=== PATIENT | female | born 1955 | race Hispanic/Latino ===

== ENCOUNTER 2020-10-29 12:10 | Observation (INO) | payer BC, OTHER ==
--- NOTE | 2020-10-29 13:15 | RAD REPORT ---
EXAM DESCRIPTION: CT - Head Brain Wo Cont - 10/29/2020 12:54 pm CLINICAL HISTORY: Alteration of awareness/confusion COMPARISON: None TECHNIQUE: Computed axial tomography of the head was obtained. IV contrast was not requested. All CT scans are performed using dose optimization technique as appropriate and may include automated exposure control or mA/KV adjustment according to patient size. FINDINGS: An intracranial bleed is not seen . The ventricles are normal in caliber. No extra-axial fluid collection is noted. Fluid within the sinuses/ mastoids is not seen. IMPRESSION: No acute intracranial abnormality is seen. If patient's symptoms persist MRI of the bra in would be recommended.
--- NOTE | 2020-10-29 13:16 | RAD REPORT ---
EXAM DESCRIPTION: Padmini Single View10/29/2020 1:02 pm CLINICAL HISTORY: Unresponsive COMPARISON: none FINDINGS: The lungs appear clear of acute infiltrate. The heart is mildly to moderately enlarged IMPRESSION: No acute abnormalities displayed
[2020-10-29 13:53] LABS: Absolute Lymphocytes (CBC) 2.1 K/uL (0.7-4.9); Basophils % 0.3 % (0-1.3); Hematocrit 39.4 % (36.0-45.0); Lymphocytes % 29.4 % (15.3-44.8); RBC Red Blood Cell Count 4.33 M/uL (3.86-4.86)
[2020-10-29 13:54] LABS: Protime INR 0.97
[2020-10-29 14:06] LABS: ALT/SGPT 47 U/L (12-78); AST/SGOT 28 U/L (15-37); Albumin 3.6 g/dL (3.4-5.0); Alkaline Phosphatase 155 U/L (45-117); BUN Blood Urea Nitrogen 14 mg/dL (7-18); Bicarbonate 27 mmol/L (21-32); Bilirubin Direct 0.1 mg/dL (0-0.2); Bilirubin Total 0.4 mg/dL (0.2-1.0); Glucose Level 119 mg/dL (74-106); Magnesium 2.4 mg/dL (1.8-2.4); NT PRO-BNP 323 pg/mL (<125); Potassium 4.1 mmol/L (3.5-5.1); Protein, Total 7.3 g/dL (6.4-8.2); Sodium Level 143 mmol/L (136-145); Troponin (Emerg Dept Use Only) < 0.02 ng/mL (0.0-0.045)
--- NOTE | 2020-10-29 14:15 | EDPHYS ---
Physician Documentation [facility] Name: Triston Adrian Age: 65 yrs Sex: Female : 1955 Arrival Date: 10/29/2020 Time: 12:23 Bed 3 Private MD: ED Physician Danilo Flores HPI: 10/30 07:50 This 65 yrs old Female presents to ER via EMS with complaints of Unresponsive. kdr 07:50 The patient presents with decreased mental status, decreased responsiveness. Onset: The kdr symptoms/episode began/occurred suddenly, just prior to arrival. Possible causes: CVA or TIA, Over sedation for a procedure. Associated signs and symptoms: Pertinent positives: weakness. Current symptoms: In the emergency department the patient's symptoms are unchanged from the initial presentation. Patient's baseline: Neuro: alert and fully oriented, Motor: no deficits, Ambulation: walks without assistance, Speech: normal for age. The patient has experienced a previous episode, Daughter states that this occurred under similar circumstances previously but she recalls that she was even more unresponsive on the prior experience.. The patient has been recently seen by a physician: the patient's primary care provider, Dr. Griffiths. Historical: - Allergies: 10/29 12:23 Dilaudid (Cardiac Arrest); aa5 - Home Meds: 12:23 losartan oral [Active]; atorvastatin oral [Active]; gabapentin oral [Active]; Tramadol aa5 Oral [Active]; Tylenol #3 Oral [Active]; - PMHx: 12:23 Diabetes mellitus; Hypertensive disorder; Hypercholesterolemia; RA; Osteoporosis; aa5 Fibromyalgia; - PSHx: 12:23 Nose; aa5 14:22 Neck (with metal); aa5 - Immunization history:: Adult Immunizations unknown. - Social history:: Smoking status: unknown. ROS: 10/30 07:50 Constitutional: Unable to assess Eyes: Negative for injury, pain, redness, and kdr discharge. Unable to obtain ROS due to obtunded state. Exam: 10/29 19:08 ECG was reviewed by the Attending Physician. kdr 10/30 07:50 Constitutional: This is a well developed, well nourished patient who is awake, alert, kdr and in no acute distress. Head/Face: Normocephalic, atraumatic. Eyes: Pupils equal round and reactive to light, extra-ocular motions intact. Lids and lashes normal. Conjunctiva and sclera are non-icteric and not injected. Cornea within normal limits. Periorbital areas with no swelling, redness, or edema. Neck: Trachea midline, no thyromegaly or masses palpated, and no cervical lymphadenopathy. Supple, full range of motion without nuchal rigidity, or vertebral point tenderness. No Meningismus. Chest/axilla: Normal chest wall appearance and motion. Nontender with no deformity. No lesions are appreciated. Cardiovascular: Regular rate and rhythm with a normal S1 and S2. No gallops, murmurs, or rubs. Normal PMI, no JVD. No pulse deficits. Respiratory: Lungs have equal breath sounds bilaterally, clear to auscultation and percussion. No rales, rhonchi or wheezes noted. No increased work of breathing, no retractions or nasal flaring. Abdomen/GI: Soft, non-tender, with normal bowel sounds. No distension or tympany. No guarding or rebound. No evidence of tenderness throughout. Back: No spinal tenderness. No costovertebral tenderness. Full range of motion. Skin: Warm, dry with normal turgor. Normal color with no rashes, no lesions, and no evidence of cellulitis. MS/ Extremity: Pulses equal, no cyanosis. Neurovascular intact. Full, normal range of motion. Neuro: Orientation: unable to test, the patient is comatose, Mentation: unable to follow commands. Vital Signs: 10/29 12:23 BP 161 / 75; Pulse 64; Resp 20 S; Temp 97.5(A); Pulse Ox 97% on R/A; aa5 13:43 BP 169 / 75; Pulse 65; Resp 18; Pulse Ox 99% on 2 lpm NC; vg1 14:05 BP 176 / 73; Pulse 75; Resp 18 S; Pulse Ox 100% on 2 lpm NC; aa5 16:00 BP 144 / 80; Pulse 75; Resp 16 S; Pulse Ox 98% on 2 lpm NC; aa5 18:30 BP 129 / 75; Pulse 70; Resp 16 S; Temp 97.8(TE); Pulse Ox 97% on R/A; aa5 MDM: 14:14 Patient medically screened. kdr 10/30 07:50 Data reviewed: vital signs, nurses notes, lab test result(s), radiologic studies, CT kdr scan. Counseling: I had a detailed discussion with the patient and/or guardian regarding: the historical points, exam findings, and any diagnostic results supporting the discharge/admit diagnosis, lab results, radiology results, the need for further work-up and treatment in the hospital. 10/29 12:35 Order name: Basic Metabolic Panel; Complete Time: 07:49 kdr 10/29 12:35 Order name: CBC with Diff; Complete Time: 14:02 kdr 10/29 12:35 Order name: LFT's; Complete Time: 07:49 kdr 10/29 12:35 Order name: Magnesium; Complete Time: 07:49 kdr 10/29 12:35 Order name: NT PRO-BNP; Complete Time: 07:49 kdr 10/29 12:35 Order name: PT-INR; Complete Time: 14:02 kdr 10/29 12:35 Order name: Troponin (emerg Dept Use Only); Complete Time: 07:49 [facility] 10/29 12:37 Order name: Glucose, Ancillary Testing; Complete Time: 14:02 EDMS 10/29 14:41 Order name: Basic Metabolic Panel EDMS 10/29 14:41 Order name: Basic Metabolic Panel; Complete Time: 07:49 EDMS 10/29 14:41 Order name: CBC with Automated Diff EDMS 10/29 14:41 Order name: CBC with Automated Diff; Complete Time: 07:49 EDMS 10/29 12:35 Order name: XRAY Chest (1 view); Complete Time: 14:02 [facility] 10/29 12:35 Order name: EKG; Complete Time: 12:36 kdr 10/29 12:35 Order name: Cardiac monitoring; Complete Time: 13:58 kdr 10/29 12:35 Order name: EKG - Nurse/Tech; Complete Time: 13:58 kdr 10/29 12:35 Order name: IV Saline Lock; Complete Time: 13:43 kdr 10/29 12:35 Order name: Labs collected and sent; Complete Time: 13:43 [facility] 10/29 12:35 Order name: O2 Per Protocol; Complete Time: 13:43 kdr 10/29 12:35 Order name: O2 Sat Monitoring; Complete Time: 13:43 kdr 10/29 12:36 Order name: CT Head Brain wo Cont; Complete Time: 14:02 kdr 10/29 14:41 Order name: NPO EDMS 10/29 14:41 Order name: Urinalysis; Complete Time: 07:49 EDMS 10/29 15:46 Order name: SARS-COV-2 RT PCR; Complete Time: 07:49 EDMS 10/29 16:15 Order name: Diet Ada 1800 Buddy; Complete Time: 16:15 aa5 10/29 18:23 Order name: Urine Dipstick-Ancillary; Complete Time: 07:49 EDMS 10/29 14:46 Order name: Swallow Screen; Complete Time: 14:46 aa5 EC/14 19:08 Rate is 63 beats/min. Rhythm is regular, Sinus Rhythm with No ectopy. QRS [place] is kdr Normal. SD interval is normal. QRS interval is normal. Clinical impression: NSR w/ Non-specific ST/T Changes. Administered Medications: 14:46 Drug: Tylenol 650 mg Route: PO; aa5 15:33 Follow up: Response: No adverse reaction; Marked relief of symptoms; Pain is decreased aa5 Disposition Summary: 10/29/20 14:14 Hospitalization Ordered Hospitalization Status: Observation kdr Provider: Robby Joy Location: Telemetry/MedSurg (observation) kdr Condition: Fair kdr Problem: new kdr Symptoms: have improved kdr Bed/Room Type: Standard [facility] Room Assignment: 203(10/29/20 17:39) dw Diagnosis - Altered mental status, unspecified kdr - Syncope Near kdr Forms: - Medication Reconciliation Form kdr - SBAR form kdr Signatures: Dispatcher [employer] EDCeline Arnett RN RN dw Danilo Flores MD MD kdr Nazia Caballero RN RN aa5 Corrections: (The following items were deleted from the chart) 14:18 13:59 CORONAVIRUS+MR.LAB.BRZ ordered. EDMS EDMS 14:22 12:23 PSHx: Neck; aa5 aa5 14:49 14:41 Protime (+INR) ordered. EDMS EDMS 15:44 14:03 Brain Wo Cont+MRI.RAD.BRZ ordered. EDMS EDMS 17:39 14:14 kdr dw
--- NOTE | 2020-10-29 14:15 | ER ---
Nurse's Notes [facility] Name: Triston Adrian Age: 65 yrs Sex: Female : 1955 Arrival Date: 10/29/2020 Time: 12:23 Bed 3 Private MD: Diagnosis: Altered mental status, unspecified;Syncope Near Presentation: 10/29 12:23 Chief complaint: EMS states: Pt was at the pain management clinic (Dr. Griffiths) for a aa5 lower back injection for pain management, pt was given propofol 100mg and Fentanyl 25mcg and per the clinic staff pt became unresponsive after Fentanyl administration. Pt was given Narcan by clinic prior to EMS arrival. EMS states upon their arrival pt was unresponsive, breathing at 20 to 22 breaths/minute, and O2 sat 100% RA. Pt currently responsive only to painful stimuli. 12:23 Coronavirus screen: At this time, the client does not indicate any symptoms associated aa5 with coronavirus-19. Ebola Screen: Patient negative for fever greater than or equal to 101.5 degrees Fahrenheit, and additional compatible Ebola Virus Disease symptoms. Initial Sepsis Screen: Does the patient meet any 2 criteria? No. Patient's initial sepsis screen is negative. Does the patient have a suspected source of infection? No. Patient's initial sepsis screen is negative. Risk Assessment: Do you want to hurt yourself or someone else? Unable to obtain. Onset of symptoms was October 29, 2020. 12:23 Acuity: ABBI 2 aa5 12:23 Method Of Arrival: EMS: [facility] aa5 Historical: - Allergies: 12:23 Dilaudid (Cardiac Arrest); aa5 - Home Meds: 12:23 losartan oral [Active]; atorvastatin oral [Active]; gabapentin oral [Active]; Tramadol aa5 Oral [Active]; Tylenol #3 Oral [Active]; - PMHx: 12:23 Diabetes mellitus; Hypertensive disorder; Hypercholesterolemia; RA; Osteoporosis; aa5 Fibromyalgia; - PSHx: 12:23 Nose; aa5 14:22 Neck (with metal); aa5 - Immunization history:: Adult Immunizations unknown. - Social history:: Smoking status: unknown. Screenin:45 Abuse screen: No signs noted. Nutritional screening: No deficits noted. Tuberculosis aa5 screening: No symptoms or risk factors identified. Fall Risk IV access (20 points). Mental Status- Overestimates/Forgets Limitations (15 pts.). Total Hernandes Fall Scale indicates High Risk Score (45 or more points). Fall prevention measures have been instituted. Side Rails Up X 2 Placed Close to Nursing Station. Assessment: 12:25 General: Appears comfortable, Behavior is unresponsive. Pain: Unable to use pain scale. aa5 Does not appear to understand pain scale. Neuro: Level of Consciousness is unresponsive, Pt opens eyes to painful stimuli. Pupils are 4mm in size, round and reactive to light. . Cardiovascular: Heart tones S1 S2 present Rhythm is regular. Respiratory: Airway is patent Respiratory effort is even, unlabored, Respiratory pattern is regular, symmetrical, Breath sounds are clear bilaterally. GI: Abdomen is round non-distended, Bowel sounds present X 4 quads. Abd is soft and non tender X 4 quads. : No signs and/or symptoms were reported regarding the genitourinary system. EENT: No signs and/or symptoms were reported regarding the EENT system. Derm: Skin is pink, warm \\T\\ dry. Musculoskeletal: Range of motion: intact in all extremities. 12:25 Reassessment: Pt's at bedside . aa5 12:40 Reassessment: Dr. Flores and Dr. Griffiths at bedside. Dr. Griffiths reports pt was in aa5 recovery when she started c/o headache, was given Fentanyl , and that is when pt became unresponsive. . 13:00 Reassessment: No changes from previously documented assessment. Patient states symptoms aa5 have not improved. 13:20 Reassessment: Pt back from CT scan . aa5 14:00 Reassessment: Pt opens eyes to painful stimuli, pt is unable to follow commands but aa5 nods to questions being asked by daughter. . 14:00 Respiratory: Airway is patent Respiratory effort is even, unlabored, Respiratory aa5 pattern is regular, symmetrical. Derm: Skin is pink, warm \\T\\ dry. 14:40 Reassessment: Patient is alert, oriented x 3, equal unlabored respirations, skin aa5 warm/dry/pink. Pt appears uncomfortable, pt c/o frontal headache. Pt states "the last thing I remember is that I was complaining of a headache and I don't remember anything after". . 14:40 Reassessment: William Krishna ([facility]-Hospitalist). aa5 14:45 Reassessment: Swallow Screen: Pass . aa5 15:33 Reassessment: Patient is alert, oriented x 3, equal unlabored respirations, skin aa5 warm/dry/pink. Patient states feeling better. RAMOS is decreased . 16:30 Reassessment: Pt resting in bed with eyes closed, equal and unlabored respirations. . aa5 17:30 Reassessment: Patient is alert, oriented x 3, equal unlabored respirations, skin aa5 warm/dry/pink. Pain: Pain currently is 6 out of 10 on a pain scale. Neuro: Reports headache frontal area. 17:30 Reassessment: Pt assisted with bedpan, pt voided once. . aa5 17:58 Reassessment: Attempted to call report. vg1 18:30 Reassessment: Unsuccessful attempt to call report to admitting nurse. . aa5 19:00 Reassessment: Patient is alert, oriented x 3, equal unlabored respirations, skin aa5 warm/dry/pink. Vital Signs: 12:23 BP 161 / 75; Pulse 64; Resp 20 S; Temp 97.5(A); Pulse Ox 97% on R/A; aa5 13:43 BP 169 / 75; Pulse 65; Resp 18; Pulse Ox 99% on 2 lpm NC; vg1 14:05 BP 176 / 73; Pulse 75; Resp 18 S; Pulse Ox 100% on 2 lpm NC; aa5 16:00 BP 144 / 80; Pulse 75; Resp 16 S; Pulse Ox 98% on 2 lpm NC; aa5 18:30 BP 129 / 75; Pulse 70; Resp 16 S; Temp 97.8(TE); Pulse Ox 97% on R/A; aa5 ED Course: 12:23 Patient arrived in ED. aa5 12:23 Arm band placed on Patient placed in an exam room, on a stretcher. aa5 12:23 Patient has correct armband on for positive identification. Placed in gown. Bed in low aa5 position. Side rails up X2. Adult w/ patient. media monitor on. Pulse ox on. NIBP on. 12:27 Nazia Caballero RN is Primary Nurse. aa5 12:30 Triage completed. aa5 12:35 Danilo Flores MD is Attending Physician. kdr 12:54 CT Head Brain wo Cont In Process Unspecified. EDMS 13:02 XRAY Chest (1 view) In Process Unspecified. EDMS 13:34 Initial lab(s) drawn, by me, sent to lab. Inserted saline lock: 22 gauge in right vg1 antecubital area, using aseptic technique. Blood collected. 14:14 Robby Joy is Hospitalizing Provider. kdr 19:10 No provider procedures requiring assistance completed. Patient admitted, IV remains in aa5 place. Administered Medications: 14:46 Drug: Tylenol 650 mg Route: PO; aa5 15:33 Follow up: Response: No adverse reaction; Marked relief of symptoms; Pain is decreased aa5 Outcome: 14:14 Decision to Hospitalize by Provider. kdr 19:10 Admitted to Med/surg accompanied by nurse, via stretcher, with chart, Report called to aa5 LISANDRA Prieto 19:10 Condition: stable 19:10 Instructed on the need for admit, Demonstrated understanding of instructions. 19:15 Patient left the ED. aa5 Signatures: Dispatcher [employer] EDDanilo Smallwood MD MD kdr Nazia Caballero, RN RN aa5 Nia Adrian, RN RN vg1 Corrections: (The following items were deleted from the chart) 14:22 12:23 PSHx: Neck; aa5 aa5 19:26 19:25 Patient left the ED. aa5 aa5
--- NOTE | 2020-10-29 14:50 | P.HP ---
Certification for Inpatient With expected LOS: >2 Midnights Patient will require the following post-hospital care: None Practitioner: I am a practitioner with admitting privileges, knowledge of patient current condition, hospital course, and medical plan of care. Services: Services provided to patient in accordance with Admission requirements found in Title 42 Section 412.3 of the Code of Federal Regulations Patient History Date of Service: 10/30/20 Reason for admission: AMS History of Present Illness: Patient is 65-year-old female with a past medical history significant for DM 2, HLD, hypertension, rheumatoid arthritis, osteoporosis, fibromyalgia who presents with complaint of unresponsiveness. Patient currently alert and oriented x1. Patient confused and unable to provide any meaningful history. Per family report patient went to see her pain management doctor which she had a steroid shot in her lumbar spine. Before the procedure patient had a dose of propofol. After the procedure patient started complaining of headache and was medicated with fentanyl. Shortly after patient became unresponsive. No other signs or symptoms noted. Symptoms are aggravated or relieved by nothing. Patient was brought to the hospital for medical evaluation. Allergies hydromorphone [From Dilaudid] Allergy (Severe, Verified 10/29/20 19:53) Anaphylaxis adhesive tape Allergy (Verified 10/29/20 19:53) Itching Home medications list reviewed: No Home Medications: Adalimumab [Humira Pen] 40 mg SQ Q15D 10/29/20 Celecoxib 200 mg PO DAILY 10/29/20 Gabapentin 300 mg PO TID 10/29/20 Glipizide [Glipizide ER] 5 mg PO DAILY 10/29/20 Losartan Potassium 100 mg PO BEDTIME 10/29/20 Sertraline [Zoloft*] 100 mg PO DAILY 10/29/20 Tizanidine [Zanaflex*] 2 mg PO DAILY 10/29/20 Varenicline Tartrate [Chantix] 1 mg PO DAILY 10/29/20 - Past Medical/Surgical History -: HTN -: DM 2 -: RA Past Surgical History: Reviewed- Non-Contributory - Family History Father -: Heart disease, Hypertension, Diabetes Mother -: Diabetes - Social History Smoking Status: Never smoker Smoking therapy provided: No Alcohol use: No CD- Drugs: No Caffeine use: No Place of Residence: Home Review of Systems is unable to be obtained (Patient confused) Physical Examination - Physical Exam General: Alert, In no apparent distress, Oriented x1 HEENT: Atraumatic, PERRLA, Mucous membr. moist/pink, EOMI, Sclerae nonicteric Neck: Supple, 2+ carotid pulse no bruit, No LAD, Without JVD or thyroid abnormality Respiratory: Clear to auscultation bilaterally, Normal air movement Cardiovascular: No edema, Regular rate/rhythm, Normal S1 S2 Capillary refill: <2 Seconds Gastrointestinal: Normal bowel sounds, No tenderness Musculoskeletal: No clubbing, No tenderness Integumentary: No rashes, No breakdown Neurological: Normal gait, Normal speech, Normal strength at 5/5 x4 extr, Normal tone, Normal affect Lymphatics: No axilla or inguinal lymphadenopathy External genitalia: Deferred Rectal: Deferred - Studies Laboratory Data (last 24 hrs) 10/29/20 : PT Cancelled, INR Cancelled 10/29/20 13:32: PT 11.1, INR 0.97 10/29/20 13:32: WBC 7.00, Hgb 13.0, Hct 39.4, Plt Count 192 10/29/20 13:32: Sodium 143, Potassium 4.1, BUN 14, Creatinine 0.63, Glucose 119 H, Magnesium 2.4, Total Bilirubin 0.4, AST 28, ALT 47, Alkaline Phosphatase 155 H Assessment and Plan - Plan -- Acute encephalopathy. Patient currently alert and oriented x1. CT head unremarkable for any intracranial abnormality. Continue supportive care ---DM2. BS monitoring with sliding scale insulin. --Hypertensive urgency. Continue home medication and hydralazine as needed. --HLD. Continue statin when appropriate. --Rheumatoid arthritis\fibromyalgia. Continue home medications when appropriate. --Headache. Tylenol as needed. --Diabetic Neuropathy. Continue Gabapentin when appropriate --DVT prophylaxis with heparin subQ Discharge Plan: Home Plan to discharge in: Greater than 2 days - Advance Directives Does patient have a Living Will: No Does patient have a Durable POA for Healthcare: No - Code Status/Comfort Care Code Status Assessed: Yes Code Status: Full Code Physician Review: Patient Assessed, Agree with Above Assessment and Plan Critical Care: No
[2020-10-29] MEDS ORDERED: ACETAMINOPHEN 325 MG TABLET ONE (15:01)
[2020-10-29] MEDS ORDERED: HYDRALAZINE HCL 20 MG/ML VIAL IV PRN (16:42)
[2020-10-29 18:23] LABS: Urine Blood Negative (Negative); Urine Glucose Negative (Negative); Urine Protein Negative (Negative); Urine Specific Gravity 1.015 (1.005-1.030)
[2020-10-29] MEDS ORDERED: GLUCAGON 1 MG/VIAL IM PRN (21:06)
[2020-10-29] MEDS ORDERED: D50W 25 GM/50 ML SYRINGE IV PRN (21:06)
[2020-10-29] MEDS ORDERED: INSULIN -REGULAR HUMAN 50 UNIT/0.5 ML ML SQ ONE (21:07)
[2020-10-29 21:45] VITALS: O2SAT 96; BMI 5117.8
[2020-10-30] MEDS: ACETAMINOPHEN 500 MG TAB PO PRN ×2 (00:08→08:48)
[2020-10-30] MEDS: HEPARIN 5000 UNIT/ML 1 ML VIAL SQ SCH ×2 (00:09→08:35)
[2020-10-30 00:40] LABS: Urine Appearance CLEAR (Clear); Urine Bilirubin NEGATIVE (Negative); Urine Blood NEGATIVE (Negative); Urine Color YELLOW (Yellow); Urine Glucose 3+ (Negative); Urine Microscopic Reflex NO UMIC; Urine Protein NEGATIVE (Negative); Urine Urobilinogen 0.2 mg/dL (0.2-1.0)
[2020-10-30 05:56] LABS: Absolute Lymphocytes (CBC) 1.6 K/uL (0.7-4.9); Basophils % 0.4 % (0-1.3); Hematocrit 36.7 % (36.0-45.0); Lymphocytes % 19.6 % (15.3-44.8); MPV 8.9 fL (7.6-11.3); RBC Red Blood Cell Count 4.09 M/uL (3.86-4.86)
[2020-10-30 06:00] LABS: BUN Blood Urea Nitrogen 13 mg/dL (7-18); Bicarbonate 27 mmol/L (21-32); Glucose Level 115 mg/dL (74-106); Potassium 4.1 mmol/L (3.5-5.1); Sodium Level 142 mmol/L (136-145)
[2020-10-30] MEDS ORDERED: INSULIN -REGULAR HUMAN 50 UNIT/0.5 ML ML SQ SCH (07:30)
--- NOTE | 2020-10-30 07:30 | EKG ---
Test Date: 2020-10-29 Test Time: 13:55:48 [employer] Drier: BOBY MEASUREMENT RESULTS: Intervals: Rate: 63 SC: 144 QRSD: 82 QT: 402 QTc: 411 [place]: P: 51 SC: 144 QRS: 72 T: 45 INTERPRETIVE STATEMENTS: Normal sinus rhythm Nonspecific T wave abnormality Abnormal ECG No previous ECG available for comparison Electronically Signed On 10-30-20 07:29:11 CDT by Andrew Mckenzie
[2020-10-30] MEDS ORDERED: PNEUMOCOCCAL VACCINE 0.5 ML IMVAC ONE (08:00)
--- NOTE | 2020-10-30 09:40 | P.DS ---
Admission Date: 10/29/20 Discharge Date: 10/30/20 Disposition: ROUTINE DISCHARGE Discharge Condition: FAIR Reason for Admission: AMS - Problems (1) Metabolic encephalopathy Status: Acute (2) Chronic back pain Status: Acute (3) Fibromyalgia Status: Acute Brief History of Present Illness: 65-year-old woman with a history of type 2 diabetes, all hyperlipidemia, hypertension, rheumatoid arthritis, fibromyalgia was brought to the emergency department due to unresponsiveness. Patient had a spinal procedure than by pain management. She was given fentanyl shortly after the procedure patient became unresponsive. She was therefore transferred to the emergency department. Blood work in the emergency department unremarkable. Patient was still unresponsive on arrival. Head CT negative. She was hospitalized for further management. Hospital Course: Patient placed under observation and given supportive measures with IV hydration. She was also placed on insulin sliding scale for glucose management. Patient became fully awake overnight. Vitals are stable. Patient deemed clinically stable for discharge. Vital Signs/Physical Exam: Temp Pulse Resp BP Pulse Ox 98.1 F 64 16 141/69 H 93 10/30/20 08:00 10/30/20 08:00 10/30/20 08:00 10/30/20 08:00 10/30/20 08:00 General: Alert, In no apparent distress, Oriented x3 HEENT: Mucous membr. moist/pink Neck: JVD not distended Respiratory: Clear to auscultation bilaterally, Normal air movement Cardiovascular: No edema, Regular rate/rhythm, Normal S1 S2 Gastrointestinal: Soft and benign, Non-distended, No tenderness Musculoskeletal: No swelling Integumentary: No rashes Neurological: Normal strength at 5/5 x4 extr Laboratory Data at Discharge: WBC 8.00 K/uL (4.3-10.9) D 10/30/20 05:22 Hgb 12.6 g/dL (12.0-15.0) 10/30/20 05:22 Hct 36.7 % (36.0-45.0) 10/30/20 05:22 Plt Count 209 K/uL (152-406) 10/30/20 05:22 PT Cancelled 10/29/20 Unknown INR Cancelled 10/29/20 Unknown Sodium 142 mmol/L (136-145) 10/30/20 05:22 Potassium 4.1 mmol/L (3.5-5.1) 10/30/20 05:22 BUN 13 mg/dL (7-18) 10/30/20 05:22 Creatinine 0.58 mg/dL (0.55-1.3) 10/30/20 05:22 Glucose 115 mg/dL (74-106) H 10/30/20 05:22 Magnesium 2.4 mg/dL (1.8-2.4) 10/29/20 13:32 Total Bilirubin 0.4 mg/dL (0.2-1.0) 10/29/20 13:32 AST 28 U/L (15-37) 10/29/20 13:32 ALT 47 U/L (12-78) 10/29/20 13:32 Alkaline Phosphatase 155 U/L (45-117) H 10/29/20 13:32 Home Medications: Adalimumab [Humira Pen] 40 mg SQ Q15D 10/29/20 Celecoxib 200 mg PO DAILY 10/29/20 Gabapentin 300 mg PO TID 10/29/20 Glipizide [Glipizide ER] 5 mg PO DAILY 10/29/20 Losartan Potassium 100 mg PO BEDTIME 10/29/20 Sertraline [Zoloft*] 100 mg PO DAILY 10/29/20 Tizanidine [Zanaflex*] 2 mg PO DAILY 10/29/20 Varenicline Tartrate [Chantix] 1 mg PO DAILY 10/29/20 Diet: ADA Activity: Ad nicole Followup: JOVANY MANZO [Primary Care Provider] - (Call to schedule appointment)
[2020-10-30 11:57] VITALS: BP 160/67; TEMP 97.3
== END 2020-10-30 12:55 | disposition home or self-care (01) ==
LOC: ER 12:10 → ERHOLD 16:01 → 2ND 18:47
PROVIDERS: ADMIT Internal Medicine; ATTEND Internal Medicine
DX: G93.41 Metabolic encephalopathy (principal); M54.9 Dorsalgia, unspecified; G89.29 Other chronic pain; M79.7 Fibromyalgia; I16.0 Hypertensive urgency; E11.40 Type 2 diabetes mellitus with diabetic neuropathy, unspecified; R51.9 Headache, unspecified; R55 Syncope and collapse; E78.5 Hyperlipidemia, unspecified; M06.9 Rheumatoid arthritis, unspecified; E78.00 Pure hypercholesterolemia, unspecified; M81.0 Age-related osteoporosis without current pathological fracture; Z23 Encounter for immunization; Z20.822 Contact with and (suspected) exposure to COVID-19; Z79.4 Long term (current) use of insulin; Z88.6 Allergy status to analgesic agent; Z91.048 Other nonmedicinal substance allergy status; Z83.3 Family history of diabetes mellitus; Z82.49 Family history of ischemic heart disease and other diseases of the circulatory system
CPT/HCPCS: 93005; 85025 ×2; 80048 ×2; 36415 ×2; 83735; 85610; 82947 ×4; 80076; 81003 ×2; 84484; 83880; 70450; 71045; 90471; 90732; 99285; U0003; J1644 ×2; G0378 ×3